=== PATIENT | male | born 1955 | race Caucasian/White ===

== ENCOUNTER 2018-01-23 05:17 | Observation (INO) | payer OTHER ==
[2018-01-22 11:15] LABS: BASOPHILS # (AUTO) 0.1 (0.0-0.1); BASOPHILS % 0.8 % (0.0-1.0); EOSINOPHILS # (AUTO) 0.2 (0.0-0.4); EOSINOPHILS % 2.2 % (0.0-6.0); HEMATOCRIT 48.6 % (38.2-49.6); HEMOGLOBIN 16.2 g/dL (14.0-18.0); LYMPHOCYTES # (AUTO) 2.2 (1.0-3.2); LYMPHOCYTES % 25.3 % (18.0-39.1); MEAN CORPUSCULAR HEMOGLOBIN 33.3 pg (28-32); MEAN CORPUSCULAR HGB CONC 33.3 g/dL (31-35); MEAN CORPUSCULAR VOLUME 99.8 fL (81-99); MONOCYTES # (AUTO) 0.7 (0.2-0.8); MONOCYTES % 8.5 % (4.4-11.3); NEUTROPHILS # (AUTO) 5.4 (2.1-6.9); PLATELET COUNT 177 x10e3/uL (140-360); RED BLOOD COUNT 4.87 x10e6/uL (4.3-5.7); RED CELL DISTRIBUTION WIDTH 13.1 % (11.7-14.4)
--- NOTE | 2018-01-22 12:10 | Diagnostic Imaging Report ---
PROCEDURE: Frontal and lateral views of the chest. COMPARISON: None. INDICATIONS: PRE OPERATIVE CHEST X-RAY FOR PAROTIDECTOMY FINDINGS: Lines/tubes: None. Lungs: The lungs are well inflated and clear. There is no evidence of pneumonia or pulmonary edema. Pleura: There is no pleural effusion or pneumothorax. Heart and mediastinum: Cardiac silhouette is borderline to mildly enlarged. Pulmonary vasculature is normal. Bones: No acute bony abnormality. No aggressive lytic lesion. IMPRESSION: 1. borderline to mildly enlarged cardiac silhouette, without acute cardiopulmonary abnormalities. Gaurav Holloway M.D. Dictated by: Gaurav Holloway M.D. on 01/22/2018 at 12:10 Electronically approved by: Gaurav Holloway M.D. on 01/22/2018 at 12:10
[~2018-01-23] VITALS: Ht 182.9 cm; Wt 112.6 kg
--- OUTSIDE RECORDS SUMMARY | 2018-01-23 05:19 | XMS REPORT ---
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 Allergies, Adverse Reactions, Alerts This patient has no known allergies or adverse reactions. Medications This patient has no known medications. Results Test Description Test Time Test Comments Text Results Atomic Results Result Comments CHEST 2 VIEWS [place] [address] Patient Name: MARGY SALEH MR #: [id number] : 1955 Age/Sex: 62/M Req #: [id number] Adm Physician: Ordered by: ALONA KOENIG, DOMINIQUE KOENIG Report #: [id number] Location: OR Room/Bed: Procedure: [id number] DX/ CHEST 2 VIEWS Exam Date: 01/22/18 Exam Time: 1135 REPORT STATUS: Signed PROCEDURE: Frontal and lateral views of the chest. COMPARISON: None. INDICATIONS: PRE OPERATIVE CHEST X-RAY FOR PAROTIDECTOMY FINDINGS: Lines/tubes: None. Lungs: The lungs are well inflated and clear. There is no evidence of pneumonia or pulmonary edema. Pleura: There is no pleural effusion or pneumothorax. Heart and mediastinum: Cardiac silhouette is borderline to mildly enlarged. Pulmonary vasculature is normal. Bones: No acute bony abnormality. No aggressive lytic lesion. IMPRESSION: 1. borderline to mildly enlarged cardiac silhouette, without acute cardiopulmonary abnormalities. María Elena Holloway M.D. Dictated by: María Elena Holloway M.D. on at 12:10 Electronically approved by: María Elena Holloway M.D. on 01/22/2018 at 12:10 Dictated By: MARÍA ELENA HOLLOWAY MD 1210 Transcribed By: MIGUEL ÁNGEL on 01/22/18 1210 COPY TO: DOMINIQUE SAGE FINE NEEDLE ASPIRATION [place] [address] Patient Name: MARGY SALEH MR #: [id number] : 1955 Age/Sex: 61/M Req #: [id number] Adm Physician: Ordered by: DOMINIQUE SAGE MD, MD Report #: [id number] Location: Room/Bed: Procedure: 1213- 0006 US/FINE NEEDLE ASPIRATION Exam Date: 10/17/17 Exam Time: 924 REPORT STATUS: Signed PROCEDURE: FINE NEEDLE ASPIRATION WITH IMAGE GUIDANCE COMPARISON: [facility], US GUIDANCE FOR PROCEDURE, 10/17/2017, 9:25. INDICATIONS: Parotid Mass FINDINGS: Ultrasound was utilized for guidance to biopsy a right parotid cystic mass. Please see the full report associated with accession number [id number] for full details. Que Gutierrez D.O. Dictated by: Que Gutierrez D.O. on 10/17/2017 at 13:54 Electronically approved by: Que Gutierrez D.O. on 10/17/2017 at 13:54 Dictated By: QUE GUTIERREZ DO 1354 Transcribed By: MIGUEL ÁNGEL on 10/17/17 1354 COPY TO: DOMINIQUE SAGE GUIDANCE FOR PROCEDURE [place] [address] Patient Name: MARGY SALEH MR #: [id number] : 1955 Age/Sex: 61/M Req #: [id number] Adm Physician: Ordered by: DOMINIQUE SAGE MD, MD Report #: [id number] Location: Room/Bed: Procedure: 1213- 0010 US/US GUIDANCE FOR PROCEDURE Exam Date: 10/17/17 Exam Time: 924 REPORT STATUS: Signed PROCEDURE: ULTRASOUND GUIDANCE FOR PROCEDURE COMPARISON: None. INDICATIONS: Mass of the Right Parotid Gland FINDINGS: COMPARISON: Outside CT scan from [facility] performed on 09/12/2017 INDICATIONS: Right deep lobe parotid mass. MEDICATION: 1% Xylocaine EBL : Less than 1 cc SPECIMENS: 5 FNA specimens and 2 aspirations FINDINGS: Informed consent was obtained. The overlying skin was prepped and draped in the usual sterile fashion. Lidocaine 1% was infiltrated into the subcutaneous tissues for local anesthesia. Utilizing ultrasound guidance 5 fine needle aspirate passes were performed with 25 gauge needles. The specimens were evaluated by the Pathologist in attendance. In addition aspiration of this cystic mass was accomplished with a 22 gauge and 20 gauge needle. Approximately 3 cc of aspirate was obtained. This was saved for cytology. CONCLUSION: Successful ultrasound guided FNA and aspiration of a right parotid cystic mass. Que Gutierrez D.O. Dictated by: Que Gutierrez D.O. on 10/17/2017 at 13:49 Electronically approved by: Que Gutierrez D.O. on 10/17/2017 at 13:49 Dictated By: QUE GUTIERREZ DO 1349 Transcribed By: MIGUEL ÁNGEL on 10/17/17 1347 COPY TO: DOMINIQUE SAGE
[2018-01-23] MEDS ORDERED: EPINEPHRINE HCL INJ 1 MG/ML AMP ONE (06:29)
[2018-01-23] MEDS ORDERED: SODIUM CHLORIDE 0.9% INJ 10 ML VIAL ONE (06:29)
[2018-01-23] MEDS ORDERED: HYDROCODONE/APAP 10MG-325MG TAB PO PRN (10:15)
[2018-01-23] MEDS ORDERED: ONDANSETRON HCL INJ 2 MG/ML VIAL IV PRN (10:15)
--- NOTE | 2018-01-23 10:46 | Operative Report ---
DATE OF PROCEDURE: January 23, 2018 PREOPERATIVE DIAGNOSIS: Right parotid gland mass. 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 PROCEDURE: Right superficial parotidectomy with preservation of facial nerve using nerve integrity monitor (NIM). 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 [employer] COACH: Nelida Lopez M.D. ANESTHESIA: General endotracheal tube anesthesia. SPECIMEN REMOVED: The inferior half of the right superficial parotid lobe. ESTIMATED BLOOD LOSS: 10 mL. COMPLICATIONS: None. INDICATIONS: The patient is a 62-year-old white male with a 6-month history of a right parotid gland mass. Exam revealed a mobile 3-cm mass in the right parotid gland. CT of the neck performed on September 12, 2017, revealed a 2.0 x 2.1 x 2.1 cm mass in the right parotid gland. Ultrasound-guided FNA biopsy performed on October 17, 2017, revealed atypical findings. The patient has frequent infections in the right parotid gland manifesting as painful swelling involving the right parotid gland in the area of the mass, which respond to antibiotics. On examination, there is an approximately 3 to 4 cm mass in the right parotid gland. He is scheduled for right superficial (possible total) parotidectomy with preservation of the facial nerve using nerve integrity monitor (NIM) for the treatment of right parotid gland mass with atypical findings on FNA biopsy that gets frequently infected. The risks and complications of the procedure were thoroughly discussed with the patient and his . They include infection; bleeding; scarring; failure to improve; possibility of malignancy and need for further surgery; paralysis of the facial nerve causing inability to move his face; poor cosmetic external appearance of the incision and/or depression caused by parotidectomy; numbness of the earlobe; sweating of the face when eating; need for blood transfusions; chronic drainage from the incision site due to collection of saliva or serous fluid; need for blood transfusions; damage to the surrounding nerves, blood vessels, and muscles. They fully understand and give consent. DESCRIPTION OF PROCEDURE: The patient was taken to the operating room and placed supine on the operating table, where general anesthesia was achieved through orotracheal intubation. The paralysis had worn off before the incision was made. The electrodes to be used for the nerve integrity monitor (NIM) were then attached in the right oral commissure and lateral to the right eye as well as the grounding electrodes in the chest. These were connected to the NIM monitor. Following this, injection with 10 mL of 1:100,000 epinephrine without lidocaine was injected along the right preauricular area and right neck in the planned parotidectomy incision site as well as the area of the anterior skin flap. Ancef was administered intraoperatively. The face was then prepped and draped in the usual sterile fashion. The right face was visualized under clear sticky drape so that facial movement could be monitored. The parotidectomy incision was then made on the right side in the preauricular area vertically, extending inferiorly past the earlobe, curving posteriorly and then turning anteriorly 2 fingerbreadths inferior to the inferior border of the mandible. The incision was made with a #15 blade. The lateral fascia of the parotid gland was encountered. Anterior and posterior skin flaps were then elevated. Atraumatic blunt dissection was then carried out, starting inferiorly along the anterior border of the sternocleidomastoid muscle. This was extended superiorly to the preauricular area including the anterior surface of the tragal cartilage. Further blunt atraumatic dissection identified the main trunk of the facial nerve, which was confirmed with the stimulator attached to the NIM monitor. Dissection was then carried out lateral to the facial nerve anteriorly until the bifurcation was seen the nerve into the superior and inferior trunks. The mass appeared to be inferior to the inferior branches, so the superior trunk was not dissected. The inferior trunk was then dissected anteriorly following all of its branches atraumatically and keeping them in good condition. The branches were dissected anteriorly until it passed the specimen inferiorly. The parotid gland inferiorly was then dissected and removed with blunt dissection containing the mass in question within the substance of the specimen. This specimen was sent for frozen section analysis, whiuch revealed findings suggestive of Warthin's tumor. No bleeding was seen after Valsalva maneuver. All of the facial nerve branches appeared to be intact and functional with the nerve stimulator. Following this, a ESME drain was inserted through a separate stab incision. The wound was then repaired with interrupted 4-0 Monocryl in a subcuticular fashion followed by Dermabond. The patient was awakened in the operating room, extubated and taken to the recovery room in good condition. Job#: [id number] DANNY
[2018-01-23] MEDS: DEXTROSE 5%/LACTATED RINGERS 1,000 ML IV SCH ×2 (11:00→18:09)
[2018-01-23] MEDS: CEFAZOLIN SOD 1 GM VIAL IV SCH ×2 (14:00→21:54)
[2018-01-23 14:15] VITALS: BP 151/80
[2018-01-23 16:13] VITALS: BP 152/80
[2018-01-23 16:42] VITALS: BP 152/80
[2018-01-23 18:11] VITALS: BP 152/80
[2018-01-23] MEDS ORDERED: FENTANYL CITRATE/PF 100MCG/2 ML INJ ONE (18:37)
[2018-01-23] MEDS ORDERED: MIDAZOLAM HCL 2 MG/2 ML VIAL ONE (18:37)
[2018-01-23] MEDS ORDERED: ONDANSETRON HCL INJ 2 MG/ML VIAL ONE (19:04)
[2018-01-23] MEDS ORDERED: SEVOFLURANE INHAL SOLN 250 ML PEN BTL ONE (19:04)
[2018-01-23] MEDS ORDERED: LIDOCAINE HCL 2% JELLY 5 ML TUBE ONE (19:04)
[2018-01-23] MEDS ORDERED: DEXAMETHASONE SOD PHOS INJ 4 MG/ML VIAL ONE (19:04)
[2018-01-23] MEDS ORDERED: PROPOFOL IV EMULSION 10 MG/ML 20 ML VIAL ONE (19:04)
[2018-01-23] MEDS ORDERED: ROCURONIUM BROMIDE 10 MG/ML 5ML VIAL ONE (19:04)
[2018-01-23] MEDS ORDERED: LIDOCAINE HCL 2% LOCAL INJ 5 ML SDV VIAL INJ ONE (19:04)
[2018-01-23 20:00] VITALS: BP 133/66
[2018-01-23 23:47] VITALS: BP 133/66
[2018-01-24] VITALS: BP 129/66
[2018-01-24] MEDS: DEXTROSE 5%/LACTATED RINGERS 1,000 ML IV SCH (03:40)
[2018-01-24 04:00] VITALS: BP 130/69
[2018-01-24] MEDS: CEFAZOLIN SOD 1 GM VIAL IV SCH (06:04)
[2018-01-24 07:45] VITALS: BP 134/71
[2018-01-24 08:00] VITALS: BP 134/71
== END 2018-01-24 09:25 | disposition home or self-care (01) ==
LOC: OR 05:17 → MED/SURG3 14:19
PROVIDERS: ADMIT Otolaryngology; ATTEND Otolaryngology
DX: D11.0 Benign neoplasm of parotid gland (principal)
CPT/HCPCS: 36415; 38724; 42415; 71046; 85025; 88307; 88331; 93005; 96361 ×2; G0378 ×2; J0171; J0690 ×2; J1100; J2001 ×2; J2250; J2405; J7120